=== PATIENT | male | born 1980 | race Two or more races ===

== ENCOUNTER 2023-04-26 23:42 | Emergency (ER) | payer OTHER ==
[~2023-04-26] VITALS: Ht 167.6 cm; Wt 90.7 kg
[2023-04-27] MEDS ORDERED: KETO10TA2 PO (05:32)
== END 2023-04-27 05:57 | disposition home or self-care (01) ==
LOC: ER 23:44
DX: R07.89 Other chest pain (principal); I10 Essential (primary) hypertension